=== PATIENT | male | born 1970 | race Caucasian/White ===

== ENCOUNTER 2017-06-17 07:51 | Observation (INO) ==
[2017-06-17] MEDS ORDERED: Aspirin 81 MG TAB.CHEW PO STA (08:17)
--- NOTE | 2017-06-17 08:29 | Emergency Department Note ---
Disposition Clinical Impression: Lightheadedness Chest pain Qualifiers: Chest pain type: precordial pain Qualified Code(s): R07.2 - Precordial pain Disposition: Admitted As Inpatient Condition: Good Time of Disposition: 09:39 General Adult HPI - General Chief complaint: ED Dizziness Stated complaint: dizziness/lightheaded Time Seen by Provider: 06/17/17 08:05 Source: patient Mode of arrival: ambulatory Limitations: no limitations Nursing Notes Reviewed: Yes Vital Signs Reviewed: Yes - History of Present Illness HPI Narrative: Patient is a 47-year-old male with a past medical history of [place] at the age of 34 and 37 requiring CABG presenting to the ED for sudden onset of lightheadedness that began 1 hour prior to arrival. 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 He denies room spinning. States only other associated symptom include nausea when he woke up this morning which resolved and he also feels a discomfort in his chest. States the chest discomfort that he has a central there is no radiation and does not have any alleviating or exacerbating factors. He states it feels different from his prior heart attacks in the past. States he feels that his lightheadedness has improved since arriving to the hospital. Pain Scale: 0 - Related Data Home Medications Medication Instructions Recorded Confirmed Aspirin [Lo-Dose Aspirin EC] 81 mg PO DAILY 06/17/17 06/17/17 BuPROPion XL (24 HR) [Wellbutrin 150 mg PO DAILY 06/17/17 06/17/17 XL] FLUoxetine HCl [Prozac] 40 mg PO DAILY 06/17/17 06/17/17 Allergies Allergy/AdvReac Type Severity Reaction Status Date / Time No Known Allergies Allergy Verified 12/31/16 11:24 All systems ED: reviewed and negative except as stated. Review of Systems: As Per HPI Constitutional: Denies: fever, chills Eyes: Denies: vision change ENT ED: Denies: ear pain, throat pain Cardiovascular: Reports: chest pain ("Discomfort"), other (Pre-syncopal). Denies: palpitations, dyspnea on exertion Respiratory: Denies: cough, dyspnea, wheezes Gastrointestinal: Reports: nausea. Denies: abdominal pain, vomiting, diarrhea, hematemesis, melena, hematochezia Genitourinary: Denies: dysuria Musculoskeletal: Denies: back pain, neck pain Integumentary: Denies: rash Neurological: Denies: headache, weakness Past Medical History - Past Medical History Attestation: Yes The following information was validated with the patient. Medical history: Reports: migraine, myocardial infarction Psychiatric history: Reports: anxiety, depression - Social History Smoking Status: Current some day smoker Smokeless Tobacco Status: Yes Alcohol use: Reports: none Drug use: Reports: none Physical Exam CONSTITUTIONAL: Well-appearing; well-nourished; A&O X 3, in no apparent distress HEAD: Normocephalic; atraumatic EYES: PERRL, no scleral icterus NOSE: The nose is normal in appearance without rhinorrhea NECK: No JVD or distended neck veins RESP: Normal chest excursion with respiration; breath sounds clear and equal bilaterally; no wheezes, rhonchi, or rales CARD: Regular rhythm, without murmurs, rub or gallop ABD: Non-distended; non-tender, soft, without rigidity, rebound or guarding,no pulsatile mass CHEST: No pain with palpation SKIN: Normal for age and race; warm and dry without diaphoresis ; no apparent lesions EXTREMITIES: Pulses are 2 plus and equal times 4 extremities, no peripheral edema or calf muscle pain NEUROLOGICAL: Patient is alert and oriented times three. Cranial nerves III- XII are intact. Sensory and motor functions are intact. Strength is 5/5 for flexion and extension in all 4 extremities. Patellar DTRS are equal and intact. Finger to nose testing is equal and normal bilaterally. - General Limitations: no limitations General appearance: alert, in no apparent distress Course Course Narrative: Patient's main complaints are chest discomfort and lightheadedness. Plan is to perform a cardiac workup of the patient as well as a head CT to rule out any intracranial process. Receive an aspirin at this time. He states that his pain and lightheadedness have improved since arriving to the emergency department. We will give him an aspirin. - Reevaluation(s) Reevaluation #1: Patient's lab work was unremarkable. His head CT was negative. Patient states his pain continues to improve. Discussed with the patient the plan to admit him to the hospital due to him being at moderate risk for MACE and with his risk factors and CAD at a young age. Patient agrees with the plan at this time. Time: 09:41 Vital Signs Temperature 97.6 F 06/17/17 07:52 Pulse Rate 74 06/17/17 07:52 Respiratory Rate 18 06/17/17 07:52 Blood Pressure 177/78 06/17/17 07:52 O2 Sat by Pulse Oximetry 94 06/17/17 07:52 Temperature 97.7 F 06/17/17 15:21 Pulse Rate 63 06/17/17 15:21 Respiratory Rate 16 06/17/17 15:21 Blood Pressure 142/91 06/17/17 15:21 O2 Sat by Pulse Oximetry 94 06/17/17 15:21 Oxygen Delivery Oxygen Delivery Nasal Cannula Medical Decision Making - Medical Records Medical records reviewed: Yes I reviewed the patient's medical records. - Lab Data Lab results reviewed: Yes I reviewed the patient's lab results. Result diagrams: 06/17/17 08:42 06/17/17 08:42 Lab Results 06/17/17 06/17/17 06/17/17 Range/Units 08:35 08:42 08:42 WBC 8.8 (4.3-11.1) K/mcL RBC 4.84 (4.19-5.50) M/mcL Hgb 15.5 (12.9-16.9) g/dL Hct 44.6 (37.5-50.1) % MCV 92.1 (83.0-100.0) fL MCH 32.0 (28.0-33.3) pg MCHC 34.8 (31.6-35.5) g/dL RDW 12.5 (11.5-14.5) % Plt Count 288 (140-400) K/mcL MPV 10.7 (9.4-12.4) fL Immature Gran % 0.1 (0-4) % Seg Neutrophils % 64.2 % Lymphocytes % 24.0 % Monocytes % 8.6 % Eosinophils % 2.6 % Basophils % 0.5 % Neutrophils # 5.7 (1.6-8.9) K/mcL Lymphocytes # 2.1 (0.6-4.6) K/mcL Monocytes # 0.8 (0.0-1.3) K/mcL Eosinophils # 0.2 (0.0-0.6) K/mcL Basophils # 0.0 (0.0-0.2) K/mcL Sodium 138 (136-145) mEq/L Potassium 3.7 (3.5-5.1) mEq/L Chloride 107 (98-107) mEq/L Carbon Dioxide 23 (23-29) mEq/L BUN 12 (6-20) mg/dL Creatinine 0.95 (0.70-1.30) mg/dL Est GFR ( Amer) > 60 (> 60) Est GFR (Non-Af Amer) > 60 (> 60) BUN/Creatinine Ratio 13 (6-26) Glucose 125 H (70-105) mg/dL POC Glucose 112 H (58-89) Calculated Osmolality 287 (280-300) Calcium 9.4 (8.6-10.3) mg/dL Troponin I < 0.03 (< 0.04) ng/mL - Radiology Data Radiology results reviewed: Yes I reviewed the patient's radiology results. Chest X-Ray 06/17/17 08:15 IMPRESSION: Hypoinflated lungs without evidence of acute cardiopulmonary abnormality. D/ / Erick Mosquera MD / Erick Mosquera MD Interpreting Provider: Erick Mosquera MD Head CT 06/17/17 08:17 IMPRESSION: No acute intracranial abnormality. D/ / Mino Doan MD / Mino Doan MD Interpreting Provider: Mino Doan MD - EKG Data EKG #1 EKG attestation: Yes I reviewed and interpreted this EKG. EKG results narrative: EKG done at 7:55 shows sinus rhythm at a rate of 71 bpm. ME is 169, QRS is 105 , QT is 294 and QTC is 416 and these are within normal limits. Normal axis. No signs of ST elevation, ST depression or Q waves present. Unchanged from prior EKG done on January 092015
[2017-06-17 08:55] LABS: Basophils % 0.5 %; Eosinophils # 0.2 K/mcL (0.0-0.6); Eosinophils % 2.6 %; Hematocrit 44.6 % (37.5-50.1); Hemoglobin 15.5 g/dL (12.9-16.9); Immature Granulocytes % 0.1 % (0-4); Lymphocytes # 2.1 K/mcL (0.6-4.6); Mean Corpuscular HGB Conc 34.8 g/dL (31.6-35.5); Mean Corpuscular Volume 92.1 fL (83.0-100.0); Mean Platelet Volume 10.7 fL (9.4-12.4); Monocytes # 0.8 K/mcL (0.0-1.3); Monocytes % 8.6 %; Neutrophils # 5.7 K/mcL (1.6-8.9); Platelet Count 288 K/mcL (140-400); Red Blood Count 4.84 M/mcL (4.19-5.50); Red Cell Distribution Width 12.5 % (11.5-14.5); Segmented Neutrophils % 64.2 %
[2017-06-17 09:20] LABS: BUN/Creatinine Ratio 13 (6-26); Blood Urea Nitrogen 12 mg/dL (6-20); Calcium 9.4 mg/dL (8.6-10.3); Carbon Dioxide 23 mEq/L (23-29); Chloride 107 mEq/L (98-107); Glucose 125 mg/dL (70-105); Osmolality,Calculated 287 (280-300); Potassium 3.7 mEq/L (3.5-5.1); Sodium 138 mEq/L (136-145); Troponin I < 0.03 ng/mL (< 0.04); eGFR For African Americans > 60 (> 60); eGFR For Non-African Americans > 60 (> 60)
[2017-06-17] MEDS ORDERED: Naloxone 0.4 MG/ML INJ IVP PRN (09:39)
[2017-06-17] MEDS ORDERED: Acetaminophen 325 MG TABLET PO PRN (09:39)
--- NOTE | 2017-06-17 09:48 | Emergency Department Note ---
Disposition Clinical Impression: Lightheadedness Chest pain Qualifiers: Chest pain type: precordial pain Qualified Code(s): R07.2 - Precordial pain Disposition: Admitted As Inpatient Condition: Good General Adult HPI - General Chief complaint: ED Dizziness Stated complaint: dizziness/lightheaded Time Seen by Provider: 06/17/17 08:05 Source: patient Mode of arrival: ambulatory Limitations: no limitations - History of Present Illness Pain Scale: 0 - Related Data Home Medications Medication Instructions Recorded Confirmed Aspirin [Lo-Dose Aspirin EC] 81 mg PO DAILY 06/17/17 06/17/17 BuPROPion XL (24 HR) [Wellbutrin 150 mg PO DAILY 06/17/17 06/17/17 XL] FLUoxetine HCl [Prozac] 40 mg PO DAILY 06/17/17 06/17/17 Allergies Allergy/AdvReac Type Severity Reaction Status Date / Time No Known Allergies Allergy Verified 12/31/16 11:24 Constitutional: Denies: fever, chills Eyes: Denies: vision change ENT ED: Denies: ear pain, throat pain Cardiovascular: Reports: chest pain ("Discomfort"), other (Pre-syncopal). Denies: palpitations, dyspnea on exertion Respiratory: Denies: cough, dyspnea, wheezes Gastrointestinal: Reports: nausea. Denies: abdominal pain, vomiting, diarrhea, hematemesis, melena, hematochezia Genitourinary: Denies: dysuria Musculoskeletal: Denies: back pain, neck pain Integumentary: Denies: rash Neurological: Denies: headache, weakness Past Medical History - Past Medical History Medical history: Reports: migraine, myocardial infarction Psychiatric history: Reports: anxiety, depression - Social History Smoking Status: Current some day smoker Smokeless Tobacco Status: Yes Alcohol use: Reports: none Drug use: Reports: none Physical Exam - General Limitations: no limitations General appearance: alert, in no apparent distress Course - Reevaluation(s) Reevaluation #1: I examined this patient and my medical decision-making was reviewed with the Resident Physician. I agree with the documented findings, disposition and treatment plan as described except to the extent set forth below. Patient presents to the ED with a chief complaint of chest discomfort. Onset this morning. His discomfort is since resolved. It was accompanied by some lightheadedness. Patient has an extensive cardiac history including coronary bypass in his late 30s. Patient is in no acute distress on examination. Lungs clear heart regular. Plan. Cardiac workup is unremarkable. No new ischemic changes on EKG. Troponin negative. Patient to be admitted for further chronic workup secondary to risk factors. Time: 09:47 Vital Signs Temperature 97.6 F 06/17/17 07:52 Pulse Rate 74 06/17/17 07:52 Respiratory Rate 18 06/17/17 07:52 Blood Pressure 177/78 06/17/17 07:52 O2 Sat by Pulse Oximetry 94 06/17/17 07:52 Temperature 97.5 F L 06/17/17 10:33 Pulse Rate 60 06/17/17 10:33 Respiratory Rate 16 06/17/17 10:33 Blood Pressure 148/90 06/17/17 10:33 O2 Sat by Pulse Oximetry 95 06/17/17 10:33 Oxygen Delivery Oxygen Delivery Nasal Cannula Medical Decision Making - Lab Data Result diagrams: 06/17/17 08:42 06/17/17 08:42 Lab Results 06/17/17 06/17/17 Range/Units 08:42 08:42 WBC 8.8 (4.3-11.1) K/mcL RBC 4.84 (4.19-5.50) M/mcL Hgb 15.5 (12.9-16.9) g/dL Hct 44.6 (37.5-50.1) % MCV 92.1 (83.0-100.0) fL MCH 32.0 (28.0-33.3) pg MCHC 34.8 (31.6-35.5) g/dL RDW 12.5 (11.5-14.5) % Plt Count 288 (140-400) K/mcL MPV 10.7 (9.4-12.4) fL Immature Gran % 0.1 (0-4) % Seg Neutrophils % 64.2 % Lymphocytes % 24.0 % Monocytes % 8.6 % Eosinophils % 2.6 % Basophils % 0.5 % Neutrophils # 5.7 (1.6-8.9) K/mcL Lymphocytes # 2.1 (0.6-4.6) K/mcL Monocytes # 0.8 (0.0-1.3) K/mcL Eosinophils # 0.2 (0.0-0.6) K/mcL Basophils # 0.0 (0.0-0.2) K/mcL Sodium 138 (136-145) mEq/L Potassium 3.7 (3.5-5.1) mEq/L Chloride 107 (98-107) mEq/L Carbon Dioxide 23 (23-29) mEq/L BUN 12 (6-20) mg/dL Creatinine 0.95 (0.70-1.30) mg/dL Est GFR ( Amer) > 60 (> 60) Est GFR (Non-Af Amer) > 60 (> 60) BUN/Creatinine Ratio 13 (6-26) Glucose 125 H (70-105) mg/dL Calculated Osmolality 287 (280-300) Calcium 9.4 (8.6-10.3) mg/dL Troponin I < 0.03 (< 0.04) ng/mL Critical Care Time Critical Care Time: No
--- NOTE | 2017-06-17 10:36 | Internal Med History&Physical ---
Date of Encounter: 06/17/17 Time of Encounter: 10:20 Assessment and Plan (1) Chest pain Current visit: Yes Status: Acute Acute chest pain. While at work. Associated with dizziness and lightheadedness. Now resolved. Monitor with telemetry. Trend troponins. Given his prior history of coronary artery disease, high risk for ACS and unstable angina. Resume beta daljit, statin. Continue aspirin. If troponins are negative, will schedule for stress test tomorrow. We will get 2-D echocardiogram also. Qualifiers: Chest pain type: precordial pain Qualified Code(s): R07.2 - Precordial pain (2) Essential hypertension Current visit: Yes Status: Chronic Blood pressure elevated at this time. We will resume beta daljit. Monitor blood pressure and adjust antihypertensives accordingly. (3) Coronary artery disease Current visit: Yes Status: Chronic Patient with history of coronary artery disease status post CABG. Resume aspirin and beta daljit and Lipitor. We will check liver profile and A1c. Qualifiers: Coronary Disease-Associated Artery/Lesion type: [place] artery [place] vs. transplanted heart: [place] heart Associated angina: with unspecified angina Qualified Code(s): I25.119 - Atherosclerotic heart disease of [place] coronary artery with unspecified angina pectoris (4) Lightheadedness Current visit: Yes Status: Acute Now resolved. Could be related to episode of chest pain. Orthostatic blood pressure is negative for orthostasis. Will monitor with telemetry. Internal Medicine - H&P: HPI Chief complaint: Lightheadedness and chest discomfort Admitted From: Emergency Dept Plans for Post Hospital Care: Home History of present illness: Mr. Crawford is a 47 year old male patient with history of coronary artery disease status post coronary artery bypass grafting presented to the ER with complaints of lightheadedness and chest discomfort. 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 Describes it as centrally located. [place] more like a discomfort than severe pain but was similar in nature to his prior episodes when he had [place]. He initially developed lightheadedness that lasted for about half hour. He denies any palpitations. No other prodromal symptoms. Denies dyspnea at rest. He does get dyspneic when walking up an incline. Denies any pedal edema or orthopnea. He has not had issues with chest pain since his coronary artery bypass grafting more than 5 years back. He has not been taking his statin and beta daljit. No fever or chills. No nausea or vomiting. No cough. Patient did have a stress test in 2016 which showed normal EF of 69% with small sized moderate in intensity fixed basal inferior defect from prior infarct. Past Med Surg Social Fam HX - Past Medical History Attestation: Yes The following information was validated with the patient. Source: patient Medical history: migraine, myocardial infarction Psychiatric history: anxiety, depression - Past Surgical History Surgical History: coronary bypass (CABG) - Social History Smoking Status: Current some day smoker Smokeless Tobacco Status: Yes Alcohol use: none Drug use: none - Additional Family History Additional family history: Reviewed and found to be noncontributory at this time Internal Medicine - H&P: Meds Aspirin [Lo-Dose Aspirin EC] 81 mg PO DAILY 06/17/17 [History] BuPROPion XL (24 HR) [Wellbutrin XL] 150 mg PO DAILY 06/17/17 [History] FLUoxetine HCl [Prozac] 40 mg PO DAILY 06/17/17 [History] 3 Allergy/AdvReac Type Severity Reaction Status Date / Time No Known Allergies Allergy Verified 12/31/16 11:24 All Systems PM: A 10-system review of systems was performed and is negative for pertinent findings except as documented above in the HPI. - Constitutional Constitutional: no chills, no fever(s), no night sweats - EENT Eyes: no change in vision, no discharge, no pain, no photophobia Ears: no ear discharge, no ear pain, no tinnitus Nose, mouth and throat: no dysphagia, no nasal discharge, no neck pain, no sore throat - Cardiovascular Cardiovascular ROS IM: chest pain, dyspnea on exertion, lightheadedness, no edema, no orthopnea, no palpitations, no paroxysmal nocturnal dyspnea, no syncope - Respiratory Respiratory: no cough, no dyspnea, no wheezing, no excessive phlegm production - Gastrointestinal Gastrointestinal: no abdominal pain, no diarrhea, no hematemesis, no hematochezia, no melena, no nausea, no vomiting - Musculoskeletal Musculoskeletal ROS IM: no numbness, no tingling - Integumentary Integumentary IM: no rash, no unusual bruising - Neurological Neurological ROS: no confusion, no convulsions, no focal weakness, no numbness, no tingling, no tremor(s) - Hematologic/Lymphatic Hematologic/Lymphatic: no easy bruising - Constitutional Vitals: Temp Pulse Resp BP Pulse Ox 97.6 F 62 13 130/83 92 06/17/17 07:52 06/17/17 09:09 06/17/17 09:09 06/17/17 09:09 06/17/17 09:09 General appearance: Present: cooperative, A&O X 3, no acute distress, obese, answers questions appropriately - Eye Eye exam: Present: EOMI, PERRL, conjuntiva pink, sclera anicteric - Neck Neck exam general surgery: Present: supple, trachea midline. Absent: lymphadenopathy - Respiratory Respiratory exam: Present: CTAB. Absent: accessory muscle use, rales, rhonchi, wheezes - Cardiovascular Cardiovascular exam: Present: RRR, +S1, +S2. Absent: diastolic murmur, gallop, rubs, systolic murmur - GI/Abdominal GI/Abdominal exam: Present: normal bowel sounds, soft, no peritoneal signs. Absent: distended, tenderness - Extremities Exam Extremities exam: Present: warm, radial pulses palpable and symmetrical. Absent : calf tenderness, cyanotic, pedal edema - Neurological Exam Neurological exam: Present: alert, CN II-XII intact, oriented X3, no focal deficits. Absent: facial droop, speech deficit Internal Med - H&P Results - Labs CBC & Chem 7: 06/17/17 08:42 06/17/17 08:42 - EKG Data -: EKG Interpreted by Myself EKG shows normal: sinus rhythm - EKG Data Prior EKG available for review: yes When compared to previous EKG: there is no significant change - Impressions Impressions Chest X-Ray 06/17/17 08:15 IMPRESSION: Hypoinflated lungs without evidence of acute cardiopulmonary abnormality. D/ / Erick Mosquera MD / Erick Mosquera MD Interpreting Provider: Erick Mosquera MD Head CT 06/17/17 08:17 IMPRESSION: No acute intracranial abnormality. D/ / Mino Doan MD / Mino Doan MD Interpreting Provider: Mino Doan MD
[2017-06-17] MEDS: Metoprolol XL (24 HR) Succ 25 MG TAB.ER.24H PO SCH (11:52)
[2017-06-18 03:31] LABS: Chol/HDL Ratio 9.9 (0-4.9)
[2017-06-18] MEDS ORDERED: Regadenoson 0.4 MG/5 ML SYRINGE IVP ONE (07:39)
[2017-06-18 08:30] LABS: Estimated Average Glucose 114 mg/dl; Hemoglobin A1C 5.6 %
[2017-06-18] MEDS ORDERED: FLUoxetine 20 MG CAPSULE PO SCH (09:00)
[2017-06-18] MEDS ORDERED: BuPROPion XL (24 HR) 150 MG TABLET PO SCH (09:00)
[2017-06-18] MEDS ORDERED: Aspirin Enteric Coated 81 MG Tablet PO SCH (09:00)
[2017-06-18] MEDS: Metoprolol XL (24 HR) Succ 25 MG TAB.ER.24H PO SCH (09:25)
[2017-06-18 11:48] VITALS: BP 123/78
--- NOTE | 2017-06-18 13:07 | Discharge Summary ---
Orders not resulted at time of discharge: Pending orders 06/18/17 07:00 NM jorge perf SPECT multi [NM] Routine Date of Encounter: 06/18/17 Time of Encounter: 13:06 - Discharge Diagnosis (1) Chest pain Priority: Primary Status: Acute Qualifiers: Chest pain type: precordial pain Qualified Code(s): R07.2 - Precordial pain (2) Coronary artery disease Priority: Secondary Status: Chronic Qualifiers: Coronary Disease-Associated Artery/Lesion type: [place] artery [place] vs. transplanted heart: [place] heart Associated angina: with unspecified angina Qualified Code(s): I25.119 - Atherosclerotic heart disease of [place] coronary artery with unspecified angina pectoris (3) Essential hypertension Priority: Secondary Status: Chronic Hospital course: Mr. Crawford is a 47 year old male with history of coronary artery disease status post coronary artery bypass grafting presented to the ER with complaints of lightheadedness and chest discomfort. 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 Described it it as centrally located. [place] more like a discomfort than severe pain but was similar in nature to his prior episodes when he had [place]. He initially developed lightheadedness that lasted for about half hour. Patient did have a stress test in 2016 which showed normal EF of 69 % with small sized moderate in intensity fixed basal inferior defect from prior infarct. He was admitted to the hospitalist service. EKG showed no ST or T- wave changes. Troponins were trended 3 and remained not elevated. Underwent a nuclear stress test which came back showing small sized, mild intensity, basal inferior perfusion defect possibly due to a prior infarct. A small sized , mild intensity, fixed apical inferior defect with normal wall motion. Findings were suggestive of an artifact. I did discuss dose with cardiology and those were also findings on a previous stress test as well in 2016 as mentioned above. The patient also underwent an echocardiogram which came back with an EF of 60% and moderate left ventricular diastolic dysfunction. The patient has not been compliant with follow-up with cardiology and has not been taking his statin or beta daljit. He was supposed to be on simvastatin. Lipid profile checked came back with total cholesterol 407 and LDL of 334. HDL was 41. A1c was 5.6. The patient was started on atorvastatin 40 mg. He was given a prescription for Toprol-XL 25 mg. He is to resume aspirin 81 mg daily. He was stable for discharge on 06/18. I did recommend that he follows up with his previous manager reimbursement Dr. Negron who he has not seen in 2 years or so. - Time Spent with Patient Total time spent providing and/or coordinating discharge services: Greater than 30 minutes - Discharge Medications Prescriptions: Atorvastatin [Lipitor] 40 mg PO HS #30 tablet Metoprolol XL (24 HR) Succ [Toprol Xl] 25 mg PO DAILY #30 tab.er.24h Home Medications: Aspirin [Lo-Dose Aspirin EC] 81 mg PO DAILY 06/17/17 [History] BuPROPion XL (24 HR) [Wellbutrin Xl] 150 mg PO DAILY 06/17/17 [History] FLUoxetine HCl [Prozac] 40 mg PO DAILY 06/17/17 [History] Atorvastatin [Lipitor] 40 mg PO HS #30 tablet 06/18/17 [Rx] Metoprolol XL (24 HR) Succ [Toprol Xl] 25 mg PO DAILY #30 tab.er.24h 06/18/17 [ Rx] Allergies/Adverse Reactions: 3 Allergy/AdvReac Type Severity Reaction Status Date / Time No Known Allergies Allergy Verified 12/31/16 11:24 Date of admission: 06/17/17 09:46 Primary care physician: Aurelia Scott CNP - Constitutional Vitals: Temp Pulse Resp BP Pulse Ox 98.5 F 51 18 123/78 95 06/18/17 11:47 06/18/17 11:47 06/18/17 11:47 06/18/17 11:47 06/18/17 11:47 General appearance: Present: cooperative, A&O X 3, no acute distress, obese, answers questions appropriately Exam: GEN: NAD CVS: RRR. S1, S2, No m/r/g RESP: CTAB ABD: Soft, NT, ND, +BS EXT: No edema. 2+ DP. No rashes NEURO: Nonfocal - Patient Status Disposition: Home, Self-Care Condition: Fair Overall status at discharge: patient is back to baseline - Discharge Instructions Instructions: Chest Pain (DC), Chronic Hypertension (DC) Follow Up With: Aurelia Scott CNP [Primary Care Provider] - 06/23/17 10:30 am Mateo Negron DO [Partnered Physician] - (1-2 weeks) Forms: ED Satisfaction Letter - Diet and Activity Activity: increase activity as tolerated Diet: low salt diet
--- NOTE | 2017-06-18 14:49 | Electrocardiograph Report ---
[place] [id number] Test Date: 2017-06-17 Pat Name: Jackson Crawford Department: 104 Room: 2A Gender: M [employer]: : 1970 Requested By: Daylin See Order Number: [id number] Reading MD: Mateo Negron DO Measurements Intervals [place] Rate: 71 P: 37 TN: 169 QRS: 38 QRSD: 105 T: 52 QT: 394 QTc: 416 Interpretive Statements SINUS RHYTHM NONSPECIFIC T-WAVE ABNORMALITY Electronically Signed On 06-18-2017 14:47:41 EDT by Mateo Negron DO
== END 2017-06-18 13:29 | disposition home or self-care (01) ==
LOC: 2ANU 07:51 → EMEROO 07:51 → 2ANU 10:16
PROVIDERS: ADMIT Internal Medicine; ATTEND Internal Medicine

== ENCOUNTER 2021-04-01 10:11 | Inpatient (IN) ==
[2021-04-01] MEDS ORDERED: Nitroglycerin 0.4 MG TAB.SUBL SL PRN (10:39)
[2021-04-01] MEDS ORDERED: Aspirin 81 MG TAB.CHEW PO ONE (10:39)
[2021-04-01 10:56] LABS: Hemoglobin 16.4 g/dL (12.9-16.9); Red Cell Distribution Width 12.6 % (11.5-14.5)
[2021-04-01 10:58] LABS: Eosinophils % 2.4 %; Immature Granulocytes % 0.2 % (0-4)
[2021-04-01 11:00] LABS: Basophils % 0.5 %; Mean Corpuscular Volume 94.2 fL (83.0-100.0); Platelet Count 316 K/mcL (140-400)
[2021-04-01 11:01] LABS: Prothrombin Time 11.5 Seconds (9.4-12.1)
[2021-04-01 11:02] LABS: Eosinophils # 0.2 K/mcL (0.0-0.6); Hematocrit 48.8 % (37.5-50.1); Immature Platelets 6.3 % (1.1-6.1); Lymphocytes # 2.3 K/mcL (0.6-4.6); Lymphocytes % 26.8 %; Mean Corpuscular HGB Conc 33.6 g/dL (31.6-35.5); Mean Corpuscular Hemoglobin 31.7 pg (28.0-33.3); Mean Platelet Volume 10.7 fL (9.4-12.4); Monocytes # 0.8 K/mcL (0.0-1.3); Neutrophils # 5.1 K/mcL (1.6-8.9); Red Blood Count 5.18 M/mcL (4.19-5.50); Segmented Neutrophils % 60.1 %; White Blood Count 8.4 K/mcL (4.3-11.1)
[2021-04-01 11:28] LABS: BUN/Creatinine Ratio 11 (6-26); Blood Urea Nitrogen 12 mg/dL (6-20); Calcium 9.4 mg/dL (8.6-10.3); Carbon Dioxide 26 mEq/L (23-29); Chloride 105 mEq/L (98-107); Glucose 110 mg/dL (70-105); Osmolality,Calculated 284 (280-300); Potassium 3.9 mEq/L (3.5-5.1); Sodium 137 mEq/L (136-145); Troponin I 0.14 ng/mL (< 0.04); eGFR For African Americans > 60 (> 60); eGFR For Non-African Americans > 60 (> 60)
[2021-04-01] MEDS ORDERED: *HR* Heparin 5,000 UNIT/ML VIAL IVP PRN ×2 (11:46)
[2021-04-01] MEDS ORDERED: *HR* Heparin 5,000 UNIT/ML VIAL IVP ONE (11:46)
[2021-04-01] MEDS ORDERED: Perflutren Lipid Microsphere 1.3 ML in 0.9 % Sodium Chloride 8.7 ML IVP PRN (12:07)
[2021-04-01] MEDS ORDERED: Naloxone 0.4 MG/ML INJ IVP PRN (12:09)
[2021-04-01] MEDS ORDERED: Ondansetron 4 MG/2 ML VIAL IVP PRN (12:09)
[2021-04-01 12:19] LABS: Hematocrit 46.1 % (37.5-50.1); Hemoglobin 15.7 g/dL (12.9-16.9); Mean Corpuscular HGB Conc 34.1 g/dL (31.6-35.5); Mean Corpuscular Hemoglobin 32.3 pg (28.0-33.3); Mean Corpuscular Volume 94.9 fL (83.0-100.0); Mean Platelet Volume 10.3 fL (9.4-12.4); Platelet Count 315 K/mcL (140-400); Red Blood Count 4.86 M/mcL (4.19-5.50); Red Cell Distribution Width 12.7 % (11.5-14.5); White Blood Count 7.5 K/mcL (4.3-11.1)
[2021-04-01] MEDS ORDERED: Aspirin 81 MG TAB.CHEW ONE (12:32)
[2021-04-01 12:41] LABS: Heparin anti-factor XA UFH < 0.04 IU/mL (0.30-0.70); Prothrombin Time 11.4 Seconds (9.4-12.1)
[2021-04-01] MEDS: Metoprolol XL (24 HR) Succ 25 MG TAB.ER.24H PO SCH (13:34)
[2021-04-01] MEDS: Heparin 25,000UNIT/250ML 1/2NS 25,000 UNIT/250 ML IV.SOLN IVC SCH (13:38)
[2021-04-02 02:49] LABS: Basophils # 0.1 K/mcL (0.0-0.2); Basophils % 0.7 %; Eosinophils # 0.2 K/mcL (0.0-0.6); Eosinophils % 2.3 %; Hemoglobin 15.3 g/dL (12.9-16.9); Immature Granulocytes % 0.1 % (0-4); Lymphocytes # 2.5 K/mcL (0.6-4.6); Lymphocytes % 31.4 %; Mean Corpuscular Hemoglobin 32.6 pg (28.0-33.3); Mean Corpuscular Volume 95.9 fL (83.0-100.0); Mean Platelet Volume 10.8 fL (9.4-12.4); Monocytes # 0.7 K/mcL (0.0-1.3); Neutrophils # 4.6 K/mcL (1.6-8.9); Platelet Count 310 K/mcL (140-400); Red Blood Count 4.69 M/mcL (4.19-5.50); Red Cell Distribution Width 12.7 % (11.5-14.5); Segmented Neutrophils % 56.5 %; White Blood Count 8.1 K/mcL (4.3-11.1)
[2021-04-02 03:05] LABS: BUN/Creatinine Ratio 11 (6-26); Blood Urea Nitrogen 12 mg/dL (6-20); Carbon Dioxide 27 mEq/L (23-29); Chloride 106 mEq/L (98-107); Glucose 91 mg/dL (70-105); Magnesium 2.1 mg/dL (1.6-2.6); Osmolality,Calculated 285 (280-300); Sodium 138 mEq/L (136-145); eGFR For African Americans > 60 (> 60); eGFR For Non-African Americans > 60 (> 60)
[2021-04-02] MEDS: Aspirin Enteric Coated 81 MG Tablet PO SCH (08:12)
[2021-04-02] MEDS: Venlafaxine XR (24 HR) 75 MG CAP.ER.24H PO SCH (08:12)
[2021-04-02] MEDS: BuPROPion XL (24 HR) 150 MG TABLET PO SCH (08:12)
[2021-04-02] MEDS: Metoprolol XL (24 HR) Succ 25 MG TAB.ER.24H PO SCH (08:12)
[2021-04-02] MEDS ORDERED: BuPROPion XL (24 HR) 150 MG TABLET PO SCH (09:00)
[2021-04-02] MEDS ORDERED: *HR* Midazolam HCl 2 MG/2 ML VIAL ONE (13:34)
[2021-04-02] MEDS ORDERED: *HR* FentaNYL (PF) 100 MCG/2 ML VIAL ONE ×2 (13:34→15:10)
[2021-04-02] MEDS ORDERED: *HR* Heparin 10,000 UNIT/10 ML VIAL ONE ×2 (13:34→14:18)
[2021-04-02] MEDS ORDERED: 0.9 % Sodium Chloride 2,000 ML ONE (13:34)
[2021-04-02] MEDS ORDERED: Nitroglycerin 1,000 MCG/5 ML VIAL IV ONE (13:34)
[2021-04-02] MEDS ORDERED: ISOVUE-370 200 ML INFUS..BTL ONE ×2 (13:34→15:01)
[2021-04-02] MEDS ORDERED: Heparin 1,000 UNITS/500 mL 500 ML ONE ×2 (13:34→14:43)
[2021-04-02] MEDS: Heparin 25,000UNIT/250ML 1/2NS 25,000 UNIT/250 ML IV.SOLN IVC SCH (13:41)
[2021-04-03 01:02] LABS: Hematocrit 46.2 % (37.5-50.1); Hemoglobin 15.1 g/dL (12.9-16.9)
[2021-04-03 01:25] LABS: BUN/Creatinine Ratio 11 (6-26); Blood Urea Nitrogen 12 mg/dL (6-20); eGFR For African Americans > 60 (> 60); eGFR For Non-African Americans > 60 (> 60)
[2021-04-03] MEDS: BuPROPion XL (24 HR) 150 MG TABLET PO SCH (07:46)
[2021-04-03] MEDS: Venlafaxine XR (24 HR) 75 MG CAP.ER.24H PO SCH (07:46)
[2021-04-03] MEDS: Aspirin Enteric Coated 81 MG Tablet PO SCH (07:46)
[2021-04-03] MEDS: Metoprolol XL (24 HR) Succ 25 MG TAB.ER.24H PO SCH (07:46)
[2021-04-03 11:09] VITALS: BP 122/78; PULSE 69; TEMP 97.4; O2SAT 82
== END 2021-04-03 13:55 | disposition home or self-care (01) | DRG 174 ==
LOC: 3BNU 10:11 → EMEROOARM 10:11 → 3BNU 12:50 → SUATTDRO 04-02 20:44
PROVIDERS: ADMIT Family Medicine; ATTEND Hospitalist

== ENCOUNTER 2021-09-05 11:02 | Inpatient (IN) ==
[2021-09-05 12:03] LABS: Basophils % 0.6 %; Eosinophils # 0.2 K/mcL (0.0-0.6); Eosinophils % 3.2 %; Hematocrit 47.1 % (37.5-50.1); Hemoglobin 15.7 g/dL (12.9-16.9); Immature Granulocytes % 0.1 % (0-4); Lymphocytes # 2.2 K/mcL (0.6-4.6); Lymphocytes % 32.9 %; Mean Corpuscular HGB Conc 33.3 g/dL (31.6-35.5); Mean Corpuscular Hemoglobin 31.8 pg (28.0-33.3); Mean Corpuscular Volume 95.3 fL (83.0-100.0); Mean Platelet Volume 10.9 fL (9.4-12.4); Monocytes # 0.6 K/mcL (0.0-1.3); Monocytes % 8.7 %; Neutrophils # 3.7 K/mcL (1.6-8.9); Platelet Count 288 K/mcL (140-400); Red Blood Count 4.94 M/mcL (4.19-5.50); Red Cell Distribution Width 12.3 % (11.5-14.5); Segmented Neutrophils % 54.5 %; White Blood Count 6.8 K/mcL (4.3-11.1)
[2021-09-05 12:22] LABS: BUN/Creatinine Ratio 8 (6-26); Blood Urea Nitrogen 8 mg/dL (6-20); Calcium 9.1 mg/dL (8.6-10.3); Carbon Dioxide 26 mEq/L (23-29); Chloride 106 mEq/L (98-107); Glucose 105 mg/dL (70-105); Osmolality,Calculated 291 (280-300); Potassium 4.1 mEq/L (3.5-5.1); Sodium 141 mEq/L (136-145); eGFR For African Americans > 60 (> 60); eGFR For Non-African Americans > 60 (> 60)
[2021-09-05] MEDS ORDERED: Aspirin 325 MG TABLET PO ONE (12:32)
[2021-09-05] MEDS ORDERED: *HR* Heparin 5,000 UNIT/ML VIAL IVP PRN ×2 (12:52)
[2021-09-05] MEDS ORDERED: *HR* Heparin 5,000 UNIT/ML VIAL IVP ONE (12:52)
[2021-09-05] MEDS: Heparin 25,000UNIT/250ML 1/2NS 25,000 UNIT/250 ML IV.SOLN IVC SCH (13:07)
[2021-09-05 13:29] LABS: Heparin anti-factor XA UFH < 0.04 IU/mL (0.30-0.70)
[2021-09-05 13:30] LABS: Prothrombin Time 10.6 Seconds (9.4-12.1)
[2021-09-05 13:31] LABS: Activated Partial Thrombo Time 33.9 Seconds (26.0-36.0)
[2021-09-05] MEDS ORDERED: Ondansetron ODT 4 MG TAB.RAPDIS SL PRN (14:00)
[2021-09-05] MEDS ORDERED: Melatonin 3 MG TABLET PO PRN (14:00)
[2021-09-05] MEDS ORDERED: MOM Conc 10 ML UD.LIQ PO PRN (14:00)
[2021-09-05] MEDS ORDERED: Naloxone 0.4 MG/ML INJ IVP PRN (14:00)
[2021-09-05] MEDS ORDERED: Perflutren Lipid Microsphere 1.3 ML in 0.9 % Sodium Chloride 8.7 ML IVP PRN (14:06)
[2021-09-06 04:37] LABS: Basophils % 0.5 %; Eosinophils # 0.2 K/mcL (0.0-0.6); Eosinophils % 2.7 %; Hematocrit 44.6 % (37.5-50.1); Hemoglobin 15.1 g/dL (12.9-16.9); Immature Granulocytes % 0.3 % (0-4); Lymphocytes # 2.7 K/mcL (0.6-4.6); Lymphocytes % 34.9 %; Mean Corpuscular HGB Conc 33.9 g/dL (31.6-35.5); Mean Corpuscular Volume 94.5 fL (83.0-100.0); Mean Platelet Volume 11.1 fL (9.4-12.4); Monocytes # 0.6 K/mcL (0.0-1.3); Monocytes % 7.3 %; Neutrophils # 4.2 K/mcL (1.6-8.9); Platelet Count 267 K/mcL (140-400); Red Blood Count 4.72 M/mcL (4.19-5.50); Red Cell Distribution Width 12.1 % (11.5-14.5); Segmented Neutrophils % 54.3 %; White Blood Count 7.7 K/mcL (4.3-11.1)
[2021-09-06 04:46] LABS: Alanine Aminotransferase 25 Units/L (7-52); Albumin 3.8 g/dL (3.5-5.7); Albumin/Globulin Ratio 1.6 (1.1-2.2); Alkaline Phosphatase 108 Units/L (34-104); Aspartate Amino Transferase 17 Units/L (13-39); BUN/Creatinine Ratio 11 (6-26); Bilirubin,Total 0.4 mg/dL (0.3-1.0); Blood Urea Nitrogen 10 mg/dL (6-20); Calcium 8.9 mg/dL (8.6-10.3); Carbon Dioxide 26 mEq/L (23-29); Chloride 106 mEq/L (98-107); Chol/HDL Ratio 5.7 (0-4.9); Cholesterol 224 mg/dL (< 200); Globulin 2.4 g/dL (2.4-3.5); Glucose 89 mg/dL (70-105); HDL Cholesterol 39 mg/dL (40-59); LDL Cholesterol,Calculated 137 mg/dL (< 100); Osmolality,Calculated 287 (280-300); Potassium 3.8 mEq/L (3.5-5.1); Sodium 139 mEq/L (136-145); Total Protein 6.2 g/dL (6.4-8.9); Triglycerides 240 mg/dL (< 150); eGFR For African Americans > 60 (> 60); eGFR For Non-African Americans > 60 (> 60)
[2021-09-06] MEDS ORDERED: Aspirin Enteric Coated 81 MG Tablet PO SCH (09:00)
[2021-09-06] MEDS: BuPROPion XL (24 HR) 150 MG TABLET PO SCH (11:18)
[2021-09-06] MEDS: Metoprolol XL (24 HR) Succ 25 MG TAB.ER.24H PO SCH (11:18)
[2021-09-06] MEDS: Venlafaxine XR (24 HR) 75 MG CAP.ER.24H PO SCH (11:18)
[2021-09-06] MEDS: Aspirin Enteric Coated 81 MG Tablet PO SCH (11:18)
[2021-09-06] MEDS: Heparin 25,000UNIT/250ML 1/2NS 25,000 UNIT/250 ML IV.SOLN IVC SCH (11:52)
[2021-09-06] MEDS ORDERED: 0.9 % Sodium Chloride 2,000 ML ONE (14:03)
[2021-09-06] MEDS ORDERED: Heparin 1,000 UNITS/500 mL 500 ML ONE (14:03)
[2021-09-06] MEDS ORDERED: *HR* Heparin 10,000 UNIT/10 ML VIAL ONE (14:04)
[2021-09-06] MEDS ORDERED: ISOVUE-370 200 ML INFUS..BTL ONE ×2 (14:04→15:09)
[2021-09-06] MEDS ORDERED: Nitroglycerin 1,000 MCG/5 ML VIAL IV ONE (14:04)
[2021-09-06] MEDS ORDERED: *HR* Midazolam HCl 2 MG/2 ML VIAL ONE (14:40)
[2021-09-06] MEDS ORDERED: *HR* FentaNYL (PF) 100 MCG/2 ML VIAL ONE (14:40)
[2021-09-06] MEDS ORDERED: Tirofiban 5 MG/100 mL 5 MG/100 ML VIAL IV ONE (15:07)
[2021-09-07] MEDS ORDERED: *HR* Enoxaparin 40 MG/0.4 ML SYRINGE SQ SCH (06:00)
[2021-09-07 06:46] VITALS: BP 102/64; PULSE 63; TEMP 97.6; O2SAT 92
[2021-09-07 07:37] LABS: BUN/Creatinine Ratio 12 (6-26); Blood Urea Nitrogen 13 mg/dL (6-20); eGFR For African Americans > 60 (> 60); eGFR For Non-African Americans > 60 (> 60)
[2021-09-07] MEDS: Venlafaxine XR (24 HR) 75 MG CAP.ER.24H PO SCH (07:49)
[2021-09-07] MEDS: Metoprolol XL (24 HR) Succ 25 MG TAB.ER.24H PO SCH (07:49)
[2021-09-07] MEDS: Aspirin Enteric Coated 81 MG Tablet PO SCH (07:50)
[2021-09-07] MEDS: BuPROPion XL (24 HR) 150 MG TABLET PO SCH (07:50)
== END 2021-09-07 11:12 | disposition home or self-care (01) | DRG 174 ==
LOC: 3BNU 11:02 → EMEROOARM 11:02 → SUATTDRO 13:38 → 3BNU 15:00
PROVIDERS: ADMIT Hospitalist; ATTEND Registered Nurse